=== PATIENT | female | born 1960 | race Hispanic/Latino ===

== ENCOUNTER 2018-05-14 06:32 | Day surgery (SDC) | payer OTHER ==
[2018-05-13 16:18] VITALS: BP 138/69
[~2018-05-14] VITALS: Ht 154.9 cm; Wt 134.9 kg
[2018-05-14] VITALS (14 sets, daily range): BP systolic 85–149; BP diastolic 43–84
[~2018-05-14 06:32] MED LIST: ATOR40TA71 PO; CARV6.2579 PO; DICL50TA9 PO; FAMO20TA8 PO; HYDR12.54 PO; LISI40TA4 PO; [UNRECOGNIZED DRUG - CODE] PO
[2018-05-14] MEDS ORDERED: FENTANYL CITRATE PF 50 MCG/1 ML 2ML VIAL ONE ×2 (07:07→09:12)
[2018-05-14] MEDS ORDERED: GLYCOPYRROLATE 0.2 MG/ML 5 ML VIAL ONE ×2 (07:07→08:59)
[2018-05-14] MEDS ORDERED: PROPOFOL 10 MG/ML 20ML VIAL IV ONE (07:07)
[2018-05-14] MEDS ORDERED: MIDAZOLAM HCL 1 MG/ML 2ML VIAL ONE (07:07)
[2018-05-14] MEDS ORDERED: LIDOCAINE PF 2% 5ML ABBOJECT ONE (07:07)
[2018-05-14] MEDS ORDERED: ONDANSETRON HCL 4 MG/2 ML VIAL ONE (07:07)
[2018-05-14] MEDS ORDERED: DEXAMETHASONE SOD PHOSPHATE 10MG/ML 1ML VIAL ONE (07:07)
[2018-05-14] MEDS ORDERED: CEFAZOLIN SODIUM 1 GM VIAL ONE (07:38)
[2018-05-14] MEDS ORDERED: LACTATED RINGERS 1000ML 1,000 ML IV ONE (07:38)
[2018-05-14] MEDS ORDERED: CEFAZOLIN 3GM /D5W 100ML 100 ML IV SCH (08:00)
[2018-05-14] MEDS ORDERED: ALBU8.5H8 IH (08:08)
[2018-05-14] MEDS ORDERED: ROCURONIUM BROMIDE 10MG/1ML 5ML VL ONE (08:58)
[2018-05-14] MEDS ORDERED: SUCCINYLCHOLINE 200MG/10ML SYR ONE (08:58)
[2018-05-14] MEDS ORDERED: METHYLPREDNISOLONE SOD SUCC 125MG/2ML VIAL ONE (08:59)
[2018-05-14] MEDS ORDERED: LIDOCAINE HCL 4% LTA SOL 4 ML VIAL ONE (08:59)
[2018-05-14] MEDS ORDERED: NEOSTIGMINE 5MG/5ML SYR IV ONE (08:59)
[2018-05-14] MEDS ORDERED: METOCLOPRAMIDE 10 MG/2 ML VIAL ONE (08:59)
[2018-05-14] MEDS ORDERED: TYL3 PO (09:14)
[2018-05-14] MEDS ORDERED: CEPH500B PO (09:14)
[2018-05-14] MEDS ORDERED: IPRATROPIUM/ALBUTEROL SULFATE 3 ML SOLUTION IH ONE (09:55)
[2018-05-14] MEDS ORDERED: RACEPINEPHRINE HCL 2.25% 0.5 ML NEB SOLN ONE (10:11)
[2018-05-14] MEDS ORDERED: KETOROLAC TROMETHAMINE 30MG/ML ONE (10:11)
== END 2018-05-14 11:40 | disposition home or self-care (01) ==
LOC: DAH 06:32
PROVIDERS: ATTEND Orthopaedic Surgery
DX: G56.03 Carpal tunnel syndrome, bilateral upper limbs (principal); I10 Essential (primary) hypertension; M19.90 Unspecified osteoarthritis, unspecified site; Z79.899 Other long term (current) drug therapy; Z98.51 Tubal ligation status; Z98.890 Other specified postprocedural states; Z96.653 Presence of artificial knee joint, bilateral; Z83.3 Family history of diabetes mellitus; Z82.49 Family history of ischemic heart disease and other diseases of the circulatory system; Z82.61 Family history of arthritis; Z88.1 Allergy status to other antibiotic agents; Z88.8 Allergy status to other drugs, medicaments and biological substances
CPT/HCPCS: 64721; 94640 ×2; A4218; A4649; A4930; A6223; J0330; J0690 ×2; J1100; J1885; J2001; J2250; J2405; J2704; J2710; J2765; J2930; J3010 ×2; J3490 ×3; J7120

== ENCOUNTER 2019-03-24 19:38 | Emergency (ER) | payer OTHER ==
[~2019-03-24 19:38] MED LIST changes: -FAMO20TA8 PO; -[UNRECOGNIZED DRUG - CODE] PO
[2019-03-24] MEDS ORDERED: PROCHLORPERAZINE EDISYLATE 10 MG/2 ML VIAL ONE (20:09)
[2019-03-24 20:34] LABS: BASOPHILS % (AUTO) 0.6 % (0.0-5.0); EOSINOPHILS % (AUTO) 4.4 % (0.0-8.0); HEMATOCRIT 36.1 % (36-48); LYMPHOCYTES % (AUTO) 26.3 % (21.0-51.0); MEAN CORPUSCULAR HGB CONC 33.7 g/dL (32.0-36.0); MEAN CORPUSCULAR VOLUME 83.4 fL (79-99); MONOCYTES % (AUTO) 6.8 % (3.0-13.0); NEUTROPHILS % (AUTO) 61.9 % (40.0-77.0); PLATELET COUNT (AUTO) 251 K/uL (130-400); RED BLOOD CELL COUNT(AUTO) 4.34 MIL/uL (4.00-5.50); RED CELL DISTRIBUTION WIDTH 14.3 % (11.0-15.5); WHITE BLOOD COUNT (AUTO) 9.3 K/uL (4.8-10.8)
[2019-03-24 20:48] LABS: CREATININE 0.5 mg/dL (0.5-1.5); POTASSIUM 3.5 mmol/L (3.5-5.1)
[2019-03-24 20:53] LABS: ALBUMIN 3.5 g/dL (3.5-5.0); BILIRUBIN,DIRECT 0.1 mg/dL (0.0-0.3); BILIRUBIN,TOTAL 0.4 mg/dL (0.2-1.0); TOTAL PROTEIN, SERUM 7.1 g/dL (6.0-8.3)
[2019-03-24 21:07] LABS: APPEARANCE,URINE Clear (CLEAR); BILIRUBIN,URINE Negative (NEGATIVE); COLOR,URINE Yellow (YELLOW); GLUCOSE, URINE (UA) Negative (NEGATIVE); KETONES,URINE Negative (NEGATIVE); LEUKOCYTE ESTERASE ,URINE Negative (NEGATIVE); NITRATE,URINE Negative (NEGATIVE); OCCULT BLOOD,URINE Negative (NEGATIVE); PH,URINE 8.5 (5.0-8.0); PROTEIN,URINE Negative (NEGATIVE); UROBILINOGEN,URINE 0.2 mg/dL (0.2-1.0)
== END 2019-03-24 22:26 | disposition home or self-care (01) ==
LOC: EDH 19:38
DX: R10.84 Generalized abdominal pain (principal); R10.13 Epigastric pain; R11.0 Nausea; E78.5 Hyperlipidemia, unspecified; I10 Essential (primary) hypertension; Z88.8 Allergy status to other drugs, medicaments and biological substances; Z88.1 Allergy status to other antibiotic agents; Z91.013 Allergy to seafood
CPT/HCPCS: 36415; 74176; 80048; 80076; 81003; 82550; 83690; 84484; 85025; 93005; 96374; 99285; J0780

== ENCOUNTER 2019-05-04 05:57 | Day surgery (SDC) | payer OTHER ==
[2019-05-03 16:37] LABS: BASOPHILS % (AUTO) 1.3 % (0.0-5.0); EOSINOPHILS % (AUTO) 3.3 % (0.0-8.0); LYMPHOCYTES % (AUTO) 24.7 % (21.0-51.0); MEAN CORPUSCULAR HEMOGLOBIN 27.7 pg (27.0-33.0); MEAN CORPUSCULAR HGB CONC 32.4 g/dL (32.0-36.0); MEAN CORPUSCULAR VOLUME 85.4 fL (79-99); NEUTROPHILS % (AUTO) 65.7 % (40.0-77.0); PLATELET COUNT (AUTO) 306 K/uL (130-400); RED BLOOD CELL COUNT(AUTO) 4.68 MIL/uL (4.00-5.50); RED CELL DISTRIBUTION WIDTH 16.1 % (11.0-15.5); WHITE BLOOD COUNT (AUTO) 9.6 K/uL (4.8-10.8)
[2019-05-03 16:44] LABS: CREATININE 0.6 mg/dL (0.5-1.5); POTASSIUM 3.9 mmol/L (3.5-5.1)
[2019-05-03 16:57] VITALS: BP 146/84
[2019-05-04] VITALS (17 sets, daily range): BP systolic 112–147; BP diastolic 58–84
[~2019-05-04] VITALS: Ht 154.9 cm; Wt 101.2 kg
[~2019-05-04 05:57] MED LIST changes: +CEFAZOLIN SODIUM 1 GM VIAL IVP SCH
[2019-05-04] MEDS ORDERED: CLINDAMYCIN 900 MG/D5% WATER 50 ML IV ONE (07:25)
[2019-05-04] MEDS ORDERED: LACTATED RINGERS 1000ML 1,000 ML IV ONE (07:25)
--- NOTE | 2019-05-04 07:30 | NUR ---
PREP pt clipped and wiped with chlorhexidine prep 2 % by Corinna Lowe RN Addendum: 05/04/19 at 0818 by JOSHUA HASSAN RN RN Amended: Links added.
[2019-05-04] MEDS ORDERED: ONDANSETRON HCL 4 MG/2 ML VIAL ONE (08:01)
[2019-05-04] MEDS ORDERED: IPRATROPIUM/ALBUTEROL SULFATE 3 ML SOLUTION IH ONE (08:03)
[2019-05-04] MEDS ORDERED: CEFAZOLIN SODIUM 1 GM VIAL ONE (08:04)
[2019-05-04] MEDS ORDERED: LIDOCAINE PF 2% 5ML ABBOJECT ONE (08:08)
[2019-05-04] MEDS ORDERED: PROPOFOL 10 MG/ML 20ML VIAL IV ONE (08:08)
[2019-05-04] MEDS ORDERED: MIDAZOLAM HCL 1 MG/ML 2ML VIAL ONE (08:08)
[2019-05-04] MEDS ORDERED: FENTANYL CITRATE PF 50 MCG/1 ML 2ML VIAL ONE (08:09)
[2019-05-04] MEDS ORDERED: ONDA4TAB4 PO (08:13)
[2019-05-04] MEDS ORDERED: FAMO-136 PO (08:14)
[2019-05-04] MEDS ORDERED: BUPIVACAINE/PF 0.25% 30ML VIAL IJ ONE (08:37)
[2019-05-04] MEDS ORDERED: EPHEDRINE SULFATE 50 MG/ML AMPULE ONE (08:40)
[2019-05-04] MEDS ORDERED: KETOROLAC TROMETHAMINE 30MG/ML ONE (09:09)
[2019-05-04] MEDS ORDERED: TYL3 PO (09:32)
[2019-05-04] MEDS ORDERED: CEPH500B PO (09:32)
[2019-05-04] MEDS ORDERED: MEPERIDINE-PF 25 MG/ML SYG ONE ×2 (10:00→10:09)
--- NOTE | 2019-05-04 10:44 | NUR ---
RECEIVE PT RECEIVED FROM PACU VIA STRETCHER AWAKE ALERT ORIENTED X3. PT STABLE. NO COMPLAINTS MADE. DRESSING TO RIGHT WRIST/HAND DRY AND INTACT, NO OOZING NOTED, PT ABLE TO MOVE FINGERS, SENSATION INTACT, NAIL BEDS PINK CAPILLARY REFILLS BRISK. KEPT RIGHT ARM/HAND ELEVATED. WILL PROVIDE SLING FOR PT. CALL [facility] WITHIN REACH, WILL CALL FOR FAMILY TO COME IN TO ROOM.
--- NOTE | 2019-05-04 11:05 | NUR ---
RX PT STATES SHE CANNOT TAKE TYLENOL #3, IT GIVES HER A BURNING SENSATION TO STOMACH, PT HAS REFLUX. PT STATES SHE TAKE TYLENOL/HYDROCODONE AT HOME, NOT REPORTED FOR MED REC. NOTIFIED DR. MITCHELL. DR. MITCHELL CHANGED PRESCRIPTION TO [facility]. PRESCRIPTION AND INSTRUCTIONS GIVEN TO SISTER IN LAW. VERBALIZED UNDERSTANDING.
--- NOTE | 2019-05-04 11:35 | NUR ---
DISCHARGE PT DISCHARGED VIA WHEELCHAIR WITH SISTER IN LAW. PT STABLE. NO COMPLAINTS MADE. DRESSING TO RIGHT HAND/WRIST REMAINS DRY AND INTACT, NO OOZING NOTED, PT ABLE TO MOVE FINGERS, SENSATION INTACT, CAPILLARY REFILLS BRISK. ARM SLING APPLIED TO RIGHT ARM PRIOR TO DISCHARGE PER DR. MITCHELL ORDERS/INSTRUCTIONS.
[2019-05-04] MEDS ORDERED: HYDR-4457 PO (12:36)
== END 2019-05-04 11:35 | disposition home or self-care (01) ==
LOC: DAH 05:57
PROVIDERS: ATTEND Orthopaedic Surgery
DX: G56.01 Carpal tunnel syndrome, right upper limb (principal); Z98.890 Other specified postprocedural states; I10 Essential (primary) hypertension; M19.90 Unspecified osteoarthritis, unspecified site; Z79.899 Other long term (current) drug therapy; Z68.41 Body mass index [BMI] 40.0-44.9, adult; Z88.8 Allergy status to other drugs, medicaments and biological substances; Z80.9 Family history of malignant neoplasm, unspecified; M25.531 Pain in right wrist; J45.909 Unspecified asthma, uncomplicated; K21.9 Gastro-esophageal reflux disease without esophagitis
CPT/HCPCS: 36415; 64721; 80048; 85025; 94640; 96374; A4215; A4649; A4930; A6223; J0690; J1885; J2001; J2175 ×2; J2250; J2405; J2704; J3010; J3490 ×3; J7120 ×2

== ENCOUNTER → 2019-05-10 | Outpatient (CLI) | payer OTHER ==
[~2019-05-10] MED LIST changes: -CEFAZOLIN SODIUM 1 GM VIAL IVP SCH; +CEPH500B PO; +FAMO-136 PO; +HYDR-4457 PO; +ONDA4TAB4 PO; +TYL3 PO
== END | disposition home or self-care (01) ==
LOC: OIH 15:00
PROVIDERS: ATTEND Family Medicine
DX: R91.8 Other nonspecific abnormal finding of lung field (principal); M47.815 Spondylosis without myelopathy or radiculopathy, thoracolumbar region; S49.92XA Unspecified injury of left shoulder and upper arm, initial encounter; X58.XXXA Exposure to other specified factors, initial encounter; Y93.89 Activity, other specified; Y92.89 Other specified places as the place of occurrence of the external cause; Y99.8 Other external cause status
CPT/HCPCS: 71046

== ENCOUNTER 2021-09-09 14:38 | Inpatient (IN) | payer BC, OTHER ==
[~2021-09-09] VITALS: Ht 154.9 cm; Wt 46.4 kg
[~2021-09-09 14:38] MED LIST changes: -LISI40TA4 PO; +LISI40TA9 PO
[2021-09-09 15:02] LABS: BASOPHILS % (AUTO) 0.5 % (0.0-5.0); HEMATOCRIT 29.9 % (36-48); LYMPHOCYTES % (AUTO) 19.1 % (21.0-51.0); MEAN CORPUSCULAR HEMOGLOBIN 27.3 pg (27.0-33.0); MEAN CORPUSCULAR HGB CONC 31.1 g/dL (32.0-36.0); MEAN CORPUSCULAR VOLUME 87.7 fL (79-99); MONOCYTES % (AUTO) 7.4 % (3.0-13.0); NEUTROPHILS % (AUTO) 69.3 % (40.0-77.0); PLATELET COUNT (AUTO) 484 K/uL (130-400); RED BLOOD CELL COUNT(AUTO) 3.41 MIL/uL (4.00-5.50); WHITE BLOOD COUNT (AUTO) 10.4 K/uL (4.8-10.8)
[2021-09-09 15:15] LABS: CREATININE 0.7 mg/dL (0.5-1.5); POTASSIUM 3.7 mmol/L (3.5-5.1)
[2021-09-09 15:19] LABS: ALBUMIN 3.1 g/dL (3.5-5.0); BILIRUBIN,TOTAL 0.2 mg/dL (0.2-1.0); TOTAL PROTEIN, SERUM 7.4 g/dL (6.0-8.3)
[2021-09-09 15:24] LABS: B-TYPE NATRIURETIC PEPTIDE 41 pg/mL (0-100)
[2021-09-09 16:59] LABS: APPEARANCE,URINE Clear (CLEAR); BILIRUBIN,URINE Negative (NEGATIVE); COLOR,URINE Dark Yellow (YELLOW); GLUCOSE, URINE (UA) Negative (NEGATIVE); KETONES,URINE 15 mg/dL (NEGATIVE); LEUKOCYTE ESTERASE ,URINE Trace (NEGATIVE); NITRATE,URINE Negative (NEGATIVE); OCCULT BLOOD,URINE Negative (NEGATIVE); PROTEIN,URINE Trace mg/dL (NEGATIVE)
[2021-09-09 17:05] LABS: RBC,URINE 0-1 /HPF (0-1)
[2021-09-09 17:06] LABS: BACTERIA,URINE Few /HPF (None Seen); MUCUS,URINE Few LPF (None Seen); SQUAMOUS EPITHELIAL CELL,UR Few /HPF (0-2)
[2021-09-09] MEDS ORDERED: ASPIRIN 81 MG EC TAB PO ONE (19:30)
[2021-09-09] MEDS: FAMOTIDINE 20MG VIAL IV SCH (20:20)
[2021-09-09] MEDS: ONDANSETRON 4MG INJ IV PRN (20:21)
[2021-09-09] MEDS: NITROGLYCERIN 0.4 MG SL TAB SL PRN (20:21)
[2021-09-09] MEDS ORDERED: CYCLOBENZAPRINE HCL 10 MG TABLET PO ONE (20:30)
[2021-09-09] MEDS ORDERED: HYDROCODONE/ACETAMINOPHEN 5/325 MG TAB PO ONE (20:30)
[2021-09-09] MEDS: ZOSYN 3.375GM +NS 50ML IV SCH (21:29)
[2021-09-09] MEDS: 0.9%NACL 50ML 50 ML IV SCH (21:29)
[2021-09-09 23:34] VITALS: BP 113/67
[2021-09-10] MEDS: NITROGLYCERIN 0.4 MG SL TAB SL PRN (00:45)
[2021-09-10] MEDS: MORPHINE 2 MG SYG IVP PRN ×3 (00:49→13:12)
[2021-09-10 04:00] VITALS: BP 104/66
[2021-09-10] MEDS: 0.9%NACL 50ML 50 ML IV SCH ×3 (04:46→20:53)
[2021-09-10] MEDS: ZOSYN 3.375GM +NS 50ML IV SCH ×3 (04:46→20:53)
[2021-09-10] MEDS: ONDANSETRON 4MG INJ IV PRN ×2 (06:23→13:18)
[2021-09-10] MEDS: IPRATROPIUM/ALBUTEROL SULFATE 3 ML SOLUTION IH PRN ×2 (06:42→18:31)
[2021-09-10] MEDS: BUDESONIDE 0.5 MG/2 ML INH IH SCH ×2 (06:42→18:31)
[2021-09-10 07:00] VITALS: BP 111/66
[2021-09-10 07:30] LABS: BASOPHILS % (AUTO) 0.5 % (0.0-5.0); EOSINOPHILS % (AUTO) 4.5 % (0.0-8.0); HEMATOCRIT 28.7 % (36-48); LYMPHOCYTES % (AUTO) 24.1 % (21.0-51.0); MEAN CORPUSCULAR HEMOGLOBIN 26.9 pg (27.0-33.0); MEAN CORPUSCULAR HGB CONC 30.3 g/dL (32.0-36.0); MEAN CORPUSCULAR VOLUME 88.6 fL (79-99); MONOCYTES % (AUTO) 8.1 % (3.0-13.0); NEUTROPHILS % (AUTO) 62.3 % (40.0-77.0); PLATELET COUNT (AUTO) 369 K/uL (130-400); RED BLOOD CELL COUNT(AUTO) 3.24 MIL/uL (4.00-5.50); RED CELL DISTRIBUTION WIDTH 14.8 % (11.0-15.5); WHITE BLOOD COUNT (AUTO) 6.4 K/uL (4.8-10.8)
[2021-09-10 07:46] LABS: CREATININE 0.6 mg/dL (0.5-1.5); INR 1.04 (0.85-1.15); MAGNESIUM 2.1 mg/dL (1.80-2.40); PHOSPHORUS 4.6 mg/dL (2.5-4.9); POTASSIUM 3.9 mmol/L (3.5-5.1); PROTHROMBIN TIME 11.3 SEC (9.6-11.6)
[2021-09-10] MEDS ORDERED: ASPI-1005 PO (08:04)
[2021-09-10] MEDS ORDERED: ENOX30DI5 SQ (08:04)
[2021-09-10] MEDS ORDERED: DOCU100C33 PO (08:04)
[2021-09-10] MEDS ORDERED: TRAM50TA4 PO (08:04)
[2021-09-10] MEDS ORDERED: FAMO20TA8 PO (08:04)
[2021-09-10] MEDS ORDERED: SENN8.6T32 PO (08:04)
[2021-09-10] MEDS ORDERED: ONDA4TAB4 PO (08:04)
[2021-09-10] MEDS ORDERED: METO25TA6 PO (08:04)
[2021-09-10] MEDS ORDERED: TRAM100T40 PO (08:04)
[2021-09-10] MEDS ORDERED: PANT40TA54 PO (08:04)
[2021-09-10] MEDS ORDERED: GABA-533 PO (08:04)
[2021-09-10] MEDS ORDERED: ASPIRIN 81 MG EC TAB PO SCH (09:00)
[2021-09-10] MEDS ORDERED: ENOXAPARIN SODIUM 40 MG/0.4 ML SYRINGE SQ SCH (09:00)
[2021-09-10] MEDS: FAMOTIDINE 20MG VIAL IV SCH ×2 (09:04→20:53)
[2021-09-10 11:00] VITALS: BP 110/70
[2021-09-10 15:00] VITALS: BP 112/69
[2021-09-10] MEDS ORDERED: TRAMADOL HCL 50 MG TABLET PO PRN (17:00)
[2021-09-10 20:00] VITALS: BP 107/70
[2021-09-10] MEDS: TRAMADOL HCL 50 MG TABLET PO PRN (20:53)
[2021-09-11] VITALS: BP 92/59
[2021-09-11] MEDS: ZOSYN 3.375GM +NS 50ML IV SCH ×3 (03:38→20:33)
[2021-09-11] MEDS: 0.9%NACL 50ML 50 ML IV SCH ×3 (03:38→20:32)
[2021-09-11] MEDS: TRAMADOL HCL 50 MG TABLET PO PRN ×3 (03:40→16:37)
[2021-09-11 04:00] VITALS: BP 113/65
[2021-09-11 04:24] LABS: MEAN CORPUSCULAR HEMOGLOBIN 27.2 pg (27.0-33.0); MEAN CORPUSCULAR HGB CONC 31.6 g/dL (32.0-36.0); MEAN CORPUSCULAR VOLUME 86.2 fL (79-99); RED BLOOD CELL COUNT(AUTO) 2.9 MIL/uL (4.00-5.50); RED CELL DISTRIBUTION WIDTH 14.9 % (11.0-15.5)
[2021-09-11 04:32] LABS: CREATININE 0.6 mg/dL (0.5-1.5)
[2021-09-11] MEDS: BUDESONIDE 0.5 MG/2 ML INH IH SCH ×2 (06:26→18:32)
[2021-09-11 08:00] VITALS: BP 113/69
[2021-09-11] MEDS: ONDANSETRON 4MG INJ IV PRN ×2 (10:32→16:45)
[2021-09-11] MEDS: ATORVASTATIN 40 MG TABLET PO SCH (10:32)
[2021-09-11] MEDS: FAMOTIDINE 20MG VIAL IV SCH ×2 (10:32→20:33)
[2021-09-11] MEDS: METOPROLOL TARTRATE 25 MG TAB PO SCH (10:33)
[2021-09-11 11:21] LABS: HEMATOCRIT 28.8 % (36-48)
[2021-09-11 12:00] VITALS: BP 116/57
[2021-09-11 16:00] VITALS: BP 100/57
[2021-09-11 20:28] VITALS: BP 126/82
[2021-09-11] MEDS ORDERED: ACETAMINOPHEN 325 MG TAB ONE ×2 (20:30→20:34)
[2021-09-12 00:32] VITALS: BP 96/58
[2021-09-12 00:32] LABS: HEMATOCRIT 25.7 % (36-48)
[2021-09-12] MEDS: TRAMADOL HCL 50 MG TABLET PO PRN ×4 (00:35→22:21)
[2021-09-12] MEDS: ONDANSETRON 4MG INJ IV PRN ×4 (00:35→22:18)
[2021-09-12] MEDS ORDERED: ACETAMINOPHEN 325 MG TAB PO PRN (01:00)
[2021-09-12] MEDS: ZOSYN 3.375GM +NS 50ML IV SCH ×3 (04:19→21:09)
[2021-09-12] MEDS: 0.9%NACL 50ML 50 ML IV SCH ×3 (04:19→21:13)
[2021-09-12 04:32] VITALS: BP 107/68
[2021-09-12] MEDS: BUDESONIDE 0.5 MG/2 ML INH IH SCH ×2 (06:36→18:20)
[2021-09-12] MEDS: IPRATROPIUM/ALBUTEROL SULFATE 3 ML SOLUTION IH PRN (06:37)
[2021-09-12 08:00] VITALS: BP 100/61
[2021-09-12] MEDS: ATORVASTATIN 40 MG TABLET PO SCH (09:29)
[2021-09-12] MEDS: METOPROLOL TARTRATE 25 MG TAB PO SCH (09:29)
[2021-09-12] MEDS: DOCUSATE SODIUM 100 MG CAP PO PRN (09:29)
[2021-09-12] MEDS: FAMOTIDINE 20MG VIAL IV SCH ×2 (09:31→21:13)
[2021-09-12 12:00] VITALS: BP 105/68
[2021-09-12 12:31] LABS: HEMATOCRIT 29.2 % (36-48)
[2021-09-12] MEDS: LACTULOSE 20 GM/30 ML UDCUP PO SCH (12:49)
[2021-09-12 16:00] VITALS: BP 110/65
[2021-09-12 20:28] VITALS: BP 93/55
[2021-09-13] VITALS: BP 100/63
[2021-09-13 00:40] LABS: HEMATOCRIT 25.9 % (36-48)
[2021-09-13] MEDS: ONDANSETRON 4MG INJ IV PRN ×3 (04:18→18:46)
[2021-09-13] MEDS: ZOSYN 3.375GM +NS 50ML IV SCH ×3 (04:18→20:45)
[2021-09-13 04:27] VITALS: BP 98/55
[2021-09-13] MEDS: TRAMADOL HCL 50 MG TABLET PO PRN ×3 (04:27→18:47)
[2021-09-13] MEDS: 0.9%NACL 50ML 50 ML IV SCH ×3 (05:27→20:45)
[2021-09-13] MEDS: BUDESONIDE 0.5 MG/2 ML INH IH SCH ×2 (06:23→22:39)
[2021-09-13 08:00] VITALS: BP 111/71
[2021-09-13] MEDS: FAMOTIDINE 20MG VIAL IV SCH ×2 (10:57→20:45)
[2021-09-13] MEDS: LACTULOSE 20 GM/30 ML UDCUP PO SCH (10:57)
[2021-09-13] MEDS: ATORVASTATIN 40 MG TABLET PO SCH (10:57)
[2021-09-13 11:37] VITALS: BP 118/68
[2021-09-13] MEDS: METOPROLOL TARTRATE 25 MG TAB PO SCH (13:37)
[2021-09-13 16:00] VITALS: BP 109/69
[2021-09-13 16:22] LABS: BASOPHILS % (AUTO) 0.6 % (0.0-5.0); EOSINOPHILS % (AUTO) 5.3 % (0.0-8.0); HEMATOCRIT 28.7 % (36-48); LYMPHOCYTES % (AUTO) 22.5 % (21.0-51.0); MEAN CORPUSCULAR HEMOGLOBIN 26.7 pg (27.0-33.0); MEAN CORPUSCULAR HGB CONC 30.7 g/dL (32.0-36.0); MEAN CORPUSCULAR VOLUME 87.2 fL (79-99); MONOCYTES % (AUTO) 7.4 % (3.0-13.0); NEUTROPHILS % (AUTO) 63.9 % (40.0-77.0); PLATELET COUNT (AUTO) 409 K/uL (130-400); RED BLOOD CELL COUNT(AUTO) 3.29 MIL/uL (4.00-5.50); RED CELL DISTRIBUTION WIDTH 14.6 % (11.0-15.5); WHITE BLOOD COUNT (AUTO) 6.2 K/uL (4.8-10.8)
[2021-09-13 16:36] LABS: % IRON SATURATION 6.1 % (22-44)
[2021-09-13 17:06] LABS: CARBON DIOXIDE 30 mmol/L (21-32); CHLORIDE 102 mmol/L (101-111); CREATININE 0.7 mg/dL (0.5-1.5); GLOMERULAR FILTR. RATE CALC 91 mL/min (>60); GLUCOSE,RANDOM 102 mg/dL (70-105); POTASSIUM 3.8 mmol/L (3.5-5.1); SODIUM SERUM 138 mmol/L (136-145); UREA NITROGEN, BLOOD 11 mg/dL (7-18)
[2021-09-13] MEDS ORDERED: EPOETIN ALFA-EPBX (NON-ESRD) 10,000 UNIT/ML VIAL SQ SCH (18:00)
[2021-09-13] MEDS ORDERED: COMPOUND IV MISC 1 EACH IVSOLN MISC PRN (18:00)
[2021-09-13] MEDS ORDERED: IRON SUCROSE COMPLEX 300 MG in 0.9%NACL 50ML 50 ML IV SCH (18:00)
[2021-09-13] MEDS: IPRATROPIUM/ALBUTEROL SULFATE 3 ML SOLUTION IH PRN (19:18)
[2021-09-13] MEDS: DOCUSATE SODIUM 100 MG CAP PO PRN (20:45)
[2021-09-13 23:16] VITALS: BP 107/59
[2021-09-14] MEDS: TRAMADOL HCL 50 MG TABLET PO PRN ×4 (01:21→20:39)
[2021-09-14] MEDS: ONDANSETRON 4MG INJ IV PRN ×4 (01:24→20:38)
[2021-09-14 02:14] VITALS: BP 93/59
[2021-09-14] MEDS: 0.9%NACL 50ML 50 ML IV SCH ×3 (05:04→20:38)
[2021-09-14] MEDS: ZOSYN 3.375GM +NS 50ML IV SCH ×3 (05:04→20:38)
[2021-09-14 05:33] VITALS: BP 106/55
[2021-09-14] MEDS: IPRATROPIUM/ALBUTEROL SULFATE 3 ML SOLUTION IH PRN (06:51)
[2021-09-14] MEDS: BUDESONIDE 0.5 MG/2 ML INH IH SCH ×2 (06:51→18:23)
[2021-09-14] MEDS: FAMOTIDINE 20MG VIAL IV SCH ×2 (08:09→20:38)
[2021-09-14] MEDS: ATORVASTATIN 40 MG TABLET PO SCH (08:09)
[2021-09-14] MEDS: METOPROLOL TARTRATE 25 MG TAB PO SCH (08:10)
[2021-09-14] MEDS: LACTULOSE 20 GM/30 ML UDCUP PO SCH (08:10)
[2021-09-14 08:42] VITALS: BP 122/78
[2021-09-14] MEDS ORDERED: SODIUM CHLORIDE 3% FOR INHALATION 4 ML/AMP VIAL.NEB IH ONE ×2 (10:13→14:34)
[2021-09-14 13:39] VITALS: BP 117/77
[2021-09-14 16:33] VITALS: BP 128/84
[2021-09-14 20:23] VITALS: BP 111/64
[2021-09-15 00:20] VITALS: BP 106/66
[2021-09-15 04:36] VITALS: BP 102/60
[2021-09-15] MEDS: 0.9%NACL 50ML 50 ML IV SCH ×2 (05:00→12:25)
[2021-09-15] MEDS: ZOSYN 3.375GM +NS 50ML IV SCH ×2 (05:00→12:25)
[2021-09-15] MEDS: ONDANSETRON 4MG INJ IV PRN ×2 (06:46→12:25)
[2021-09-15] MEDS: TRAMADOL HCL 50 MG TABLET PO PRN ×2 (06:47→12:25)
[2021-09-15] MEDS: BUDESONIDE 0.5 MG/2 ML INH IH SCH (06:51)
[2021-09-15] MEDS: ATORVASTATIN 40 MG TABLET PO SCH (07:52)
[2021-09-15] MEDS: FAMOTIDINE 20MG VIAL IV SCH (07:52)
[2021-09-15] MEDS: METOPROLOL TARTRATE 25 MG TAB PO SCH (07:59)
[2021-09-15 08:09] VITALS: BP 93/55
[2021-09-15 10:09] LABS: HEMATOCRIT 30.3 % (36-48); MEAN CORPUSCULAR HEMOGLOBIN 26.6 pg (27.0-33.0); MEAN CORPUSCULAR HGB CONC 30.7 g/dL (32.0-36.0); MEAN CORPUSCULAR VOLUME 86.8 fL (79-99); RED BLOOD CELL COUNT(AUTO) 3.49 MIL/uL (4.00-5.50); RED CELL DISTRIBUTION WIDTH 14.9 % (11.0-15.5)
[2021-09-15 10:20] LABS: CREATININE 0.8 mg/dL (0.5-1.5); POTASSIUM 3.4 mmol/L (3.5-5.1)
[2021-09-15 12:11] VITALS: BP 107/60
[2021-09-15] MEDS: LACTULOSE 20 GM/30 ML UDCUP PO SCH (12:24)
== END 2021-09-15 16:22 | DRG 205 ==
LOC: EDH 14:38 → OBSVTOIN 19:02 → EDHIP 19:02 → 4DH 23:26
PROVIDERS: ADMIT Internal Medicine; ATTEND Internal Medicine
DX: M94.0 Chondrocostal junction syndrome [Tietze] (principal); J18.9 Pneumonia, unspecified organism; J98.11 Atelectasis; Z68.1 Body mass index [BMI] 19.9 or less, adult; M19.90 Unspecified osteoarthritis, unspecified site; I10 Essential (primary) hypertension; E78.5 Hyperlipidemia, unspecified; Z96.653 Presence of artificial knee joint, bilateral; Z20.822 Contact with and (suspected) exposure to COVID-19; E66.01 Morbid (severe) obesity due to excess calories; D64.9 Anemia, unspecified; E78.00 Pure hypercholesterolemia, unspecified; J44.9 Chronic obstructive pulmonary disease, unspecified; Z95.1 Presence of aortocoronary bypass graft; Z79.899 Other long term (current) drug therapy; Z90.49 Acquired absence of other specified parts of digestive tract; Z98.1 Arthrodesis status; Z98.84 Bariatric surgery status; Z88.8 Allergy status to other drugs, medicaments and biological substances; Z91.013 Allergy to seafood; Z82.0 Family history of epilepsy and other diseases of the nervous system; Z82.5 Family history of asthma and other chronic lower respiratory diseases; Z82.49 Family history of ischemic heart disease and other diseases of the circulatory system; Z82.3 Family history of stroke; Z83.3 Family history of diabetes mellitus
CPT/HCPCS: 36415; 71045; 71250; 78582; 80048; 80053; 81001; 82270; 82550; 82607; 82746; 83540; 83550; 83735; 83880; 84100; 84145; 84484; 85014; 85018; 85025; 85027; 85045; 85378; 85610; 85730; 86850; 86900; 86901; 87040; 87088; 87635; 93005; 93970; 94640; 94664; 94760; A9540; A9558; G0378; J1650; J1756; J2405; J2543; J3490